=== PATIENT | female | born 1995 | race Caucasian/White ===

== ENCOUNTER 2020-06-28 14:51 | Emergency (ER) | payer SELFPAY ==
[~2020-06-28] VITALS: Ht 162.5 cm; Wt 65.7 kg
--- NOTE | 2020-06-28 15:21 | ED GI ---
General Stated Complaint: GALLBLADDER ISSUES History of Present Illness Date Seen by Provider: Jun 28, 2020 Time Seen by Provider: 15:15 Initial Comments 25-year-old female presents with abdominal pain. The pain is located in the upper abdomen and in the lower right lower quadrant. Patient reports this pain going on in the upper abdomen for about a month at least. Right lower quadrant is new. Patient reports that she was seen yesterday and they were concerned about her gallbladder. However no labs or ultrasound was performed. Patient was started on Pepcid. She presents to the ER today because the pain has gotten worse. She has some nausea. She also has some mild diarrhea. She had 100.5 fever yesterday but none reported today. No urinary symptoms. Patient had a test yesterday that was negative. No other systemic complaints Allergies and Home Medications Allergies Coded Allergies: No Known Drug Allergies (Unverified , 06/28/20) Patient Home Medication List Home Medication List Reviewed: Yes Review of Systems Review of Systems Constitutional: No chills; fever EENTM: No Symptoms Reported Respiratory: Denies Cough, Denies Shortness of Air Cardiovascular: Denies Chest Pain, Denies Irregular Heart Rate Gastrointestinal: Abdominal Pain, Diarrhea, Nausea; Denies Vomiting Genitourinary: No Symptoms Reported Musculoskeletal: no symptoms reported Skin: no symptoms reported Psychiatric/Neurological: No Symptoms Reported Endocrine: No Symptoms Reported Hematologic/Lymphatic: No Symptoms Reported Past [id number] Hx Past Med/Social Hx: Reviewed Nursing Past Med/Soc Hx Physical Exam Vital Signs Vital Signs - First Documented 06/28/20 15:14 Temp 37.0 Pulse 66 Resp 20 B/P (MAP) 129/77 (94) Pulse Ox 99 O2 Delivery Room Air Capillary Refill : Height/Weight/BMI Height: '" Weight: lbs. oz. kg; BMI Method: General Appearance: no apparent distress Neck: full range of motion, supple Respiratory: lungs clear, normal breath sounds Cardiovascular: normal peripheral pulses, regular rate, rhythm Gastrointestinal: soft, tenderness (Mild tenderness bilateral upper quadrants, right lower quadrant. Negative Mittal sign) Extremities: non-tender, normal inspection Back: CVA tenderness (R) Neurologic/Psychiatric: no motor/sensory deficits, alert, normal mood/affect, oriented x 3 Skin: normal color, warm/dry Focused Exam Lactate Level 06/28/20 15:35: Lactic Acid Level 1.10 Lactic Acid Level Laboratory Tests Test 06/28/20 15:35 Lactic Acid Level 1.10 MMOL/L (0.50-2.00) Progress/Results/Core Measures Results/Orders Lab Results Laboratory Tests Test 06/28/20 15:25 06/28/20 15:30 06/28/20 15:35 Range/Units White Blood Count 7.0 4.3-11.0 10^3/uL Red Blood Count 4.42 3.80-5.11 10^6/uL Hemoglobin 13.4 11.5-16.0 g/dL Hematocrit 41 35-52 % Mean Corpuscular Volume 93 80-99 fL Mean Corpuscular Hemoglobin 30 25-34 pg Mean Corpuscular Hemoglobin Concent 33 32-36 g/dL Red Cell Distribution Width 12.3 10.0-14.5 % Platelet Count 302 130-400 10^3/uL Mean Platelet Volume 9.7 9.0-12.2 fL Immature Granulocyte % (Auto) 0 % Neutrophils (%) (Auto) 58 42-75 % Lymphocytes (%) (Auto) 32 12-44 % Monocytes (%) (Auto) 9 0-12 % Eosinophils (%) (Auto) 1 0-10 % Basophils (%) (Auto) 0 0-10 % Neutrophils # (Auto) 4.0 1.8-7.8 10^3/uL Lymphocytes # (Auto) 2.2 1.0-4.0 10^3/uL Monocytes # (Auto) 0.6 0.0-1.0 10^3/uL Eosinophils # (Auto) 0.1 0.0-0.3 10^3/uL Basophils # (Auto) 0.0 0.0-0.1 10^3/uL Immature Granulocyte # (Auto) 0.0 0.0-0.1 10^3/uL Sodium Level 138 135-145 MMOL/L Potassium Level 3.8 3.6-5.0 MMOL/L Chloride Level 104 98-107 MMOL/L Carbon Dioxide Level 31 21-32 MMOL/L Anion Gap 3 L 5-14 MMOL/L Blood Urea Nitrogen 12 7-18 MG/DL Creatinine 0.69 0.60-1.30 MG/DL Estimat Glomerular Filtration Rate > 60 BUN/Creatinine Ratio 17 Glucose Level 96 70-105 MG/DL Calcium Level 9.4 8.5-10.1 MG/DL Corrected Calcium 8.5-10.1 MG/DL Total Bilirubin 0.3 0.1-1.0 MG/DL Aspartate Amino Transf (AST/SGOT) 14 5-34 U/L Alanine Aminotransferase (ALT/SGPT) 14 0-55 U/L Alkaline Phosphatase 59 40-136 U/L Total Protein 7.1 6.4-8.2 GM/DL Albumin 4.6 H 3.2-4.5 GM/DL Lipase 54 8-78 U/L Urine Color YELLOW Urine Clarity CLEAR Urine pH 7.0 5-9 Urine Specific [place] <=1.005 1.016-1.022 Urine Protein NEGATIVE NEGATIVE Urine Glucose (UA) NEGATIVE NEGATIVE Urine Ketones NEGATIVE NEGATIVE Urine Nitrite NEGATIVE NEGATIVE Urine Bilirubin NEGATIVE NEGATIVE Urine Urobilinogen 0.2 < = 1.0 MG/DL Urine Leukocyte Esterase NEGATIVE NEGATIVE Urine RBC (Auto) NEGATIVE NEGATIVE Urine RBC NONE /HPF Urine WBC 0-2 /HPF Urine Squamous Epithelial Cells 2-5 /HPF Urine Crystals NONE /LPF Urine Bacteria TRACE /HPF Urine Casts NONE /LPF Urine Mucus NEGATIVE /LPF Urine Culture Indicated NO Lactic Acid Level 1.10 0.50-2.00 MMOL/L Micro Results Microbiology 06/28/20 Influenza Types A,B Antigen ([place]) - Final, Complete My Orders Orders - RAKESH MICHELE DO Cbc With Automated Diff (06/28/20 15:22) Comprehensive Metabolic Panel (06/28/20 15:22) Lactic Acid Analyzer (06/28/20 15:22) Lipase (06/28/20 15:22) Ua Culture If Indicated (06/28/20 15:22) Influenza A And B Antigens (06/28/20 15:22) Acute Abd Series (06/28/20 15:22) Ondansetron Injection (Zofran Injectio (06/28/20 15:30) Lactated Ringers (Lr 1000 Ml Iv Solution (06/28/20 15:23) Famotidine Injection (Pepcid Injection) (06/28/20 15:23) Ed Iv/Invasive Line Start (06/28/20 15:23) Medications Given in ED Current Medications Medications Dose Ordered Sig/Manuel Route Start Time Stop Time Status Last Admin Dose Admin Ondansetron HCl 4 mg ONCE ONCE IVP 06/28/20 15:30 06/28/20 15:31 DC 06/28/20 15:31 4 MG Vital Signs/I&O 06/28/20 15:14 Temp 37.0 Pulse 66 Resp 20 B/P (MAP) 129/77 (94) Pulse Ox 99 O2 Delivery Room Air Progress Progress Note : Time: 16:13 Progress Note Patient with no acute findings on her labs x-ray. Exam is consistent more with a gastritis within a possible secondary viral gastroenteritis. She was told to start Pepcid yesterday. I would like her to add omeprazole in addition to the Pepcid. She was also given Phenergan but she says that knocks her out so I will prescribe her some Zofran. She should follow-up with her primary care provider in about a week for further evaluation. At this time she has no acute findings that would indicate problems with her gallbladder such as elevated labs and negative exam for tenderness over the gallbladder. Patient stable and will be discharged Departure Impression Primary Impression: Abdominal pain Qualified Codes: R10.10 - Upper abdominal pain, unspecified Additional Impressions: Gastritis Qualified Codes: K29.70 - Gastritis, unspecified, without bleeding Viral gastroenteritis Disposition: HOME, SELF-CARE Condition: Stable Departure-Patient Inst. Referrals: NO,LOCAL PHYSICIAN (PCP) Primary Care Physician JONATHON MARVIN APRN (Family) Primary Care Physician Patient Instructions: Viral Gastroenteritis, Adult (DC), Gastritis ED Add. Discharge Instructions: Take omeprazole 20 mg daily in addition to your already prescribed Pepcid Follow-up with your primary care provider in approximately 5 days for recheck of today's symptoms Scripts Ondansetron (Ondansetron Odt) 4 Mg Tab.rapdis 4 MG PO Q6H PRN for NAUSEA/VOMITING, #20 TAB 0 Refills Prov: MICHELE,RAKESH L DO 06/28/20 MICHELE,RAKESH L DO Jun 28, 2020 15:21
[2020-06-28] MEDS ORDERED: LACTATED RINGERS 1,000 ML IV STA (15:23)
[2020-06-28] MEDS ORDERED: FAMOTIDINE 20MG/2ML IV (PEPCID) IV STA (15:23)
[2020-06-28] MEDS ORDERED: ONDANSETRON 4 MG/2 ML (SDV) Z0FRAN IVP ONE (15:30)
[2020-06-28 15:33] LABS: BASOPHILS % (AUTO) 0 % (0-10); EOSINOPHILS # (AUTO) 0.1 10^3/uL (0.0-0.3); EOSINOPHILS % (AUTO) 1 % (0-10); HEMATOCRIT 41 % (35-52); HEMOGLOBIN 13.4 g/dL (11.5-16.0); LYMPHOCYTES # (AUTO) 2.2 10^3/uL (1.0-4.0); LYMPHOCYTES % (AUTO) 32 % (12-44); MEAN CORPUSCULAR HEMOGLOBIN 30 pg (25-34); MEAN CORPUSCULAR HGB CONC 33 g/dL (32-36); MEAN CORPUSCULAR VOLUME 93 fL (80-99); MEAN PLATELET VOLUME 9.7 fL (9.0-12.2); MONOCYTES # (AUTO) 0.6 10^3/uL (0.0-1.0); MONOCYTES % (AUTO) 9 % (0-12); NEUTROPHILS % (AUTO) 58 % (42-75); PLATELET COUNT 302 10^3/uL (130-400)
[2020-06-28 15:46] LABS: ALBUMIN 4.6 GM/DL (3.2-4.5)
[2020-06-28 15:47] LABS: CHLORIDE 104 MMOL/L (98-107); POTASSIUM 3.8 MMOL/L (3.6-5.0); SODIUM 138 MMOL/L (135-145)
[2020-06-28 15:48] LABS: CALCIUM 9.4 MG/DL (8.5-10.1)
[2020-06-28 15:49] LABS: GLUCOSE 96 MG/DL (70-105); TOTAL PROTEIN 7.1 GM/DL (6.4-8.2)
[2020-06-28 15:50] LABS: CARBON DIOXIDE 31 MMOL/L (21-32)
[2020-06-28 15:51] LABS: BILIRUBIN,TOTAL 0.3 MG/DL (0.1-1.0)
[2020-06-28 15:52] LABS: ALKALINE PHOSPHATASE 59 U/L (40-136)
[2020-06-28 15:53] LABS: CREATININE SERUM 0.69 MG/DL (0.60-1.30); GFR ESTIMATED > 60
[2020-06-28 15:54] LABS: BUN/CREATININE RATIO 17
[2020-06-28 15:55] LABS: BILIRUBIN,URINE NEGATIVE (NEGATIVE); CLARITY,URINE CLEAR; COLOR,URINE YELLOW; GLUCOSE, URINE (UA) NEGATIVE (NEGATIVE); KETONES,URINE NEGATIVE (NEGATIVE); LEUKOCYTE ESTERASE ,URINE NEGATIVE (NEGATIVE); NITRITE,URINE NEGATIVE (NEGATIVE); PROTEIN,URINE NEGATIVE (NEGATIVE)
[2020-06-28 15:56] LABS: ALANINE AMINOTRANSFERASE 14 U/L (0-55); LIPASE 54 U/L (8-78)
[2020-06-28 15:59] LABS: BACTERIA,URINE TRACE /HPF; WBC,URINE 0-2 /HPF
--- NOTE | 2020-06-28 16:06 | Diagnostic Imaging Report ---
EXAM: ACUTE ABD SERIES INDICATION: Abdominal pain. COMPARISON: None. FINDINGS: Normal heart size and central pulmonary vascularity. No focal pulmonary opacity, pleural effusion, or pneumothorax. No acute osseous findings. No free intraperitoneal air. Nonspecific bowel gas pattern. IUD. Mild right apex thoracic and left apex lumbar curvatures. IMPRESSION: No acute radiographic findings in the chest or abdomen. Dictated by: Dictated on workstation # [id number]
[2020-06-28] MEDS ORDERED: ONDA4TAB11 PO (16:16)
[2020-06-28 16:48] VITALS: BP 119/76
== END 2020-06-28 16:48 | disposition home or self-care (01) ==
LOC: ER 14:54
DX: R10.31 Right lower quadrant pain (principal); R10.12 Left upper quadrant pain; R10.11 Right upper quadrant pain; K29.70 Gastritis, unspecified, without bleeding; A08.4 Viral intestinal infection, unspecified
CPT/HCPCS: 36415; 74022; 80053; 81000; 83605; 83690; 85025; 87804